=== PATIENT | female | born 1990 | race Caucasian/White ===

== ENCOUNTER 2017-12-09 11:02 | Emergency (ER) | payer OTHER ==
[~2017-12-09] VITALS: Ht 160 cm; Wt 98.0 kg
[2017-12-09 11:06] VITALS: BP 133/70; Ht 160 cm; Wt 98.0 kg
== END 2017-12-09 12:26 | disposition home or self-care (01) ==
LOC: ED 11:02
DX: J02.0 Streptococcal pharyngitis (principal); F17.210 Nicotine dependence, cigarettes, uncomplicated; Z71.6 Tobacco abuse counseling
CPT/HCPCS: 99406; J0696

== ENCOUNTER 2018-08-07 20:27 | Emergency (ER) | payer OTHER ==
[~2018-08-07] VITALS: Ht 157.5 cm; Wt 102.1 kg
[2018-08-07 20:30] VITALS: BP 131/88; Ht 157.5 cm; Wt 102.1 kg
== END 2018-08-07 22:42 | disposition home or self-care (01) ==
LOC: ED 20:27
DX: M94.0 Chondrocostal junction syndrome [Tietze] (principal)
CPT/HCPCS: J1885